=== PATIENT | male | born 1970 | race Caucasian/White ===

== ENCOUNTER 2018-04-13 08:22 | Day surgery (SDC) | payer OTHER ==
[~2018-04-13] VITALS: Ht 185.4 cm; Wt 81.5 kg
[2018-04-13] VITALS (15 sets, daily range): BP systolic 130–158; BP diastolic 65–90; PULSE 50–71; RESP 16–18; TEMP 97.9–98.2; O2SAT 96–99
[~2018-04-13 08:22] MED LIST: ASPI81 PO; CRES10TA PO; DIOV160T60 PO; METO25CR PO; NITR.4 PO; PRAS10 PO
[2018-04-13] MEDS ORDERED: IOHEXOL 350 MG/ML 100 ML BTL (for Cath Lab) OTHER ONE (08:23)
[2018-04-13] MEDS ORDERED: IOHEXOL 350 MG/ML 50 ML BTL (for Cath Lab) OTHER ONE (08:23)
[2018-04-13] MEDS ORDERED: NS 1000P @30 MLS/HR (KVO) IV SCH (09:00)
[2018-04-13] MEDS ORDERED: ECASA81 PO (09:08)
[2018-04-13] MEDS ORDERED: NITR1SUB3 SL (09:08)
[2018-04-13] MEDS ORDERED: PLAV75TA29 PO (09:08)
[2018-04-13] MEDS ORDERED: HYDR25TA5 PO (09:08)
[2018-04-13] MEDS ORDERED: ROSU20 PO (09:08)
[2018-04-13] MEDS ORDERED: DIOV160T6 PO (09:08)
[2018-04-13] MEDS ORDERED: METO1TAB42 PO (09:08)
[2018-04-13 09:15] LABS: AUTOMATED NEUTROPHIL # 4.6 TH/MM3 (1.8-7.7); BASOPHIL # 0.1 TH/MM3 (0-0.2); BASOPHIL % 0.9 % (0.0-2.0); EOSINOPHIL # 0.2 TH/MM3 (0-0.4); EOSINOPHIL % 2.5 % (0.0-4.0); HEMATOCRIT 46.3 % (39.0-51.0); HEMOGLOBIN 15.9 GM/DL (13.0-17.0); LYMPH % 28.4 % (9.0-44.0); LYMPHOCYTE # 2.1 TH/MM3 (1.0-4.8); MEAN CORPUSCULAR HEMOGLOBIN 31.5 PG (27.0-34.0); MEAN CORPUSCULAR HGB CONC 34.2 % (32.0-36.0); MEAN PLATELET VOLUME 7.3 FL (7.0-11.0); MONO % 6.4 % (0.0-8.0); MONOCYTE # 0.5 TH/MM3 (0-0.9); NEUT % 61.8 % (16.0-70.0); PLATELET COUNT 188 TH/MM3 (150-450); RED BLOOD COUNT 5.03 MIL/MM3 (4.50-5.90); RED CELL DISTRIBUTION WIDTH 13.5 % (11.6-17.2); WHITE BLOOD COUNT 7.5 TH/MM3 (4.0-11.0)
[2018-04-13 09:26] LABS: PROTHROMBIN TIME - PATIENT 10.1 SEC (9.8-11.6)
[2018-04-13 09:29] LABS: BICARBONATE 25.3 MEQ/L (21.0-32.0); CALCIUM 8.5 MG/DL (8.5-10.1); CREATININE 0.79 MG/DL (0.60-1.30)
[2018-04-13] MEDS ORDERED: VERAPAMIL HCL 5 MG/2 ML VIAL ONE (09:52)
[2018-04-13] MEDS ORDERED: HEPARIN SODIUM - IV 10,000 UNITS/10 ML VIAL ONE (09:52)
[2018-04-13] MEDS ORDERED: HEPARIN-NS/PF INJ 1,000 ML ONE (09:52)
[2018-04-13] MEDS ORDERED: NITROGLYCERIN INJ 5 ML ONE (09:52)
[2018-04-13] MEDS ORDERED: MIDAZOLAM HCL 2 MG/2 ML VIAL ONE (10:08)
[2018-04-13] MEDS ORDERED: MORPHINE SULFATE 10 MG/ML INJ ONE (11:10)
[2018-04-13] MEDS ORDERED: CLOPIDOGREL 300 MG TAB ONE (11:25)
[2018-04-13] MEDS ORDERED: SODIUM CHLOR 0.9% 1000 ML INJ 1,000 ML IV SCH (11:29)
[2018-04-13] MEDS ORDERED: MORPHINE SULFATE 4 MG/ML INJ IV PUSH PRN (11:30)
[2018-04-13] MEDS ORDERED: MISC INFORMATION XX ONE (11:30)
[2018-04-13] MEDS ORDERED: ACETAMINOPHEN 325 MG TAB PO PRN (11:30)
[2018-04-13] MEDS ORDERED: oxyCODONE/ACETAMINOPHEN 5 MG/325 MG TAB PO PRN (11:30)
[2018-04-13] MEDS ORDERED: oxyCODONE/ACETAMINOPHEN 10 MG/325 MG TAB PO PRN (11:30)
--- NOTE | 2018-04-13 11:41 | CATHPROC ---
Advebs HIS Report Study Information Study Number Admission Scheduled Start Study Start [id number] Apr 13 2018 8:22AM 04/13/2018 Apr 13 2018 9:51AM [place] [facility] Cardiac Catheterization Admit Source Facility Department Other [facility] - Fire Alarm Mechanic Physician and Clinical Staff Initial Flo Stearns Production Support Manager Stanley Figueroa,VANGIE Production Support Manager Meenu Kennedy,VANGIE Recorder Marci Hunt ,RT(R) Scrub Fabrizio Dodd RCIS(BS) Procedures Performed Procedure Location (Site) Vessel Name Coronary Angiograms LCA Left Coronary Coronary Angiograms RCA Right Coronary Drug Eluting Inflatio LAD Mid Left Coronary Drug Eluting Inflatio RCA Prox Right Coronary L Heart Cath PTCA LAD Mid Left Coronary PTCA RCA Prox Right Coronary Wire insertion Radial (right) Radial Art. Equipment Time Molybdenum Steamer Operator Description Size Mfg Part Number Used/Scraped WIRE, BALANCE MIDDLEWEIGHT [id number] 10:30 [employer] 190CM Used 190CM *[id number] TRANSDUCER, TRUWAVE [id number] 10:08 BRAN MARK * Used W/STOCKCOCK *[id number] 534-518T *0768957 -082-00 *3004698 534-521T *[id number] 10:08 [employer] PACK, CCL CUSTOM * Used *[id number] 10:08 [employer] SUPPORT, ARTERIAL ADULT 27439 *[id number] Used [id number] 10:56 MEDTRONIC BALLOON, 2.5 X 12MM EUPHORA 12MM Used *[id number] BALLOON, 2.75 X 8MM NC [id number] 11:07 MEDTRONIC 8MM Used EUPHORA *[id number] BALLOON, 3.25 X 8MM NC [id number] 10:44 MEDTRONIC 8MM Used EUPHORA *[id number] 11:02 MEDTRONIC STENT, 2.75 15MM LEONCIO 2.75 15MM Used *3152583 [id number] 10:40 MEDTRONIC STENT, 3.0 8MM LEONCIO 3.0 8MM Used *[id number] [id number] 10:49 MEDTRONIC/AVE EBU 3.5 Z2 GUIDE CATHETER FR 6 Used *[id number] [id number] 10:43 PICS Auditing 30 MYLA INDEFLATOR Used *[id number] BAND, RADIAL COMPRESSION TR [id number] 11:18 [employer] MEDICAL 24CM Used SHORT 24 *[id number] 10:08 PICS Auditing WIRE, EXCHANGE 260CM 3MMJ 260CM Used *[id number] 10:08 NAMIC MANIFOLD, 4 PORT * Used *[id number] 10:08 NYCOMED OMNIPAQUE, 350 MG, 150ML 150ML [id number] Used [id number] 10:08 [facility] BLANKET,WARM AIR CCL * Used *[id number] SHEATH, FR6 TRANSRADIAL RM*[id number] 10:08 [employer] FR 6 Used SLENDER 10CM *[id number] Equipment Model, Serial, Lot Number and Expiration Data Description Model Number Serial Number Lot Number Expiration Date STENT, 2.75 15MM LEONCIO [id number] 11-11-2019 STENT, 3.0 8MM LEONCIO [id number] 01-06-2020 History: Current Medications Medication Dosage/Unit Route Frequency Last Date/Time Taken ASA Statins (any) DIOVAN NTG SL PLAVIX History: Allergies Allergy Reaction No Known Allergies History: Risk Factors Family History of Hypertension Dyslipidemia Previous ID Previous Heart Failure Premature CAD Yes Yes Yes Yes No Prior Valve Prior PCI Prior PCIDate Prior CABG Surgery No Yes 11/24/2016 No Cerebrovascular Peripheral Artery Chronic Lung On Dialysis Diabetes Disease Disease Disease No No No No No History: Other Current Smoker Method Packs a Day Years Used Pack Years Yes Cigarettes 1 17 17 Labs Hgb (g/dl) Hct (%) WBC (l/cumm) Platelets (thousands) 11.60-17.00 35.00-51.00 4.00-11.00 150.00-450.00 15.9 46.3 7.5 188 Glucose (mg/dl) BUN (mg/dl) Creatinine (mg/dl) BUN:Creatinine (1:x) 74.00-106.00 7.00-18.00 0.50-1.30 10.00-20.00 105 13 0.7 18.6 Na (meq/l) K (meq/l) 136.00-145.00 3.50-5.10 141 4.2 INR (PTT:PT) 0.90-1.10 1 CPK-MB (ng/ML) 0.50-3.60 Not Drawn Medication Medication Total Dose (Bolus/Oral) Medication Total Dosage/Unit 1% XYLOCAINE 10 mL FENTANYL 50 mcg HEPARIN 7000 units MORPHINE 2 mg NTG (IC) 200 mcg PLAVIX 600 mg RADIAL COCKTAIL 5 mL (Bolus) VERSED 1 mg Medications (Bolus/Oral) Medication Time Given Dosage/Unit Administered By Reason VERSED 04/13/2018 10:13:34 AM 1 mg Henry, Stanley 1 mg VERSED given in lab by Stanley Figueroa RN in Left Antecubital via Peripheral IV. Ordered by Flo Schmitt FENTANYL 04/13/2018 10:14:36 AM 50 mcg Henry, Stanley 50 mcg FENTANYL given in lab by Stanley Figueroa RN in Left Antecubital via Peripheral IV. Ordered by Flo Santiago 1% XYLOCAINE 04/13/2018 10:18:22 AM 10 mL Flo Mccrary 10 mL 1% XYLOCAINE given in lab by Flo Mccrary in Right Radial via Subcutaneous. Ordered by Flo Murphy Ntg 200mcg Verapamil 2.5mg Heparin RADIAL COCKTAIL 04/13/2018 10:21:42 AM 5 mL (Bolus) Flo Mccrary 3000U 5 mL (Bolus) RADIAL COCKTAIL given in lab by Flo Mccrary in Right Radial via Radial. Using [S olution Name]. Ordered by Flo Mccrary Reason: Ntg 200mcg Verapamil 2.5mg Heparin 3200U. HEPARIN 04/13/2018 10:31:20 AM 5000 units Meenu Kennedy 5000 units HEPARIN given in lab by Meenu Kennedy RN via Peripheral IV. Ordered by Jean Mccrary HEPARIN 04/13/2018 10:59:10 AM 2000 units Stanley Figueroa 2000 units HEPARIN given in lab by Stanley Figueroa RN in Left Antecubital via Peripheral IV. Ordered by Flo Mccrary NTG (IC) 04/13/2018 11:08:36 AM 200 mcg Flo Mccrary 200 mcg NTG (IC) given in lab by Flo Mccrary via Intra-coronary. Ordered by Flo Mccrary MORPHINE 04/13/2018 11:12:46 AM 2 mg Henry, Stanley 2 mg MORPHINE given in lab by Stanley Figueroa RN in Left Antecubital via Peripheral IV. Ordered by Flo Saavedra PLAVIX 04/13/2018 11:27:00 AM 600 mg Stanley Figueroa 600 mg PLAVIX given in lab by Stanley Figueroa RN via Oral. Ordered by Flo Mccrary Medication (Drip) Medication Time Given Dosage/Unit Concentration/Unit Diluent (ml) Solution IV Solutions 04/13/2018 10:00:14 AM 50 mL (IV) NaCl .9 Patient arrived on IV Solutions in Left Antecubital via Peripheral IV. Pump/Drip Flow using NaCl .9. Initial Case Assessment Cardiovascular HR Rhythm NIBP Chest Pain 56 sr 140/83 0 Edema Present Skin color Skin None Normal Warm Dry Circulatory - Right Pulses Dorsalis Pedis Femoral Radial 2 2 2 Scale (0,1,2,3,4,d) Circulatory - Left Pulses Dorsalis Pedis Femoral Radial 2 2 Scale (0,1,2,3,4,d) Circulatory - Lower Extremities Color Lower Right Color Lower Left Normal Normal Neurological State Oriented to time-place- Alert Moves all extremities person Respiration - General Respiration Rate SpO2 (%) (B/min) 8 97 Final Case Assessment Cardiovascular HR Rhythm NIBP Chest Pain 56 sr 140/83 0 Edema Present Skin color Skin None Normal Warm Dry Circulatory - Right Pulses Dorsalis Pedis Femoral Radial 2 2 2 Scale (0,1,2,3,4,d) Circulatory - Left Pulses Dorsalis Pedis Femoral Radial 2 2 Scale (0,1,2,3,4,d) Circulatory - Lower Extremities Color Lower Right Color Lower Left Normal Normal Neurological State Oriented to time-place- Alert Moves all extremities person Respiration - General Respiration Rate SpO2 (%) (B/min) 8 97 Chronological Log Time Study Chronological Log 9:51:08 Patient arrived via Bed. 9:51:09 Patient Name, D.O.B, / Armband Verified By R.N. 9:51:09 Consent signed by the physician and the patient and verified by the Fire Alarm Mechanic staff. Vitals capture started with the following parameters, Patient=Adult, Interval=5 min, Initial Pr uaogeo=355 mmHg, 9:58:58 Deflation Rate=5 mmHg, Cuff placed on Left Arm 9:59:35 HR=61 bpm, YCWV=867/85 mmhg, SpO2=99.0 %, Resp=18 B/min, Pain=0, Melchor=10, Acosta=2 9:59:54 Pre-op and post- op instructions given; patient acknowledges understanding of instructions. 9:59:56 Verbal Stimulation=2 Physical Stimulation=2 Airway=2 Respiration=2 TOTAL=8. (0=absent, 1=li mited, 2=present) 10:00:01 Allens test performed on the right radial and ulnar artery. Positive 10:00:08 Patient has been NPO for More than 6Hrs. 10:00:08 Skin Breakdown- none per patient 10:00:10 Patient Warmer Placed on the Table. 10:00:11 Coni Prominences Protected 10:00:14 A # 20 IV was noted in the Antecubital (left). Grade = 0 10:00:14 Patient arrived on IV Solutions in Left Antecubital via Peripheral IV. Pump/Drip Flow using NaCl .9. 10:00:15 History and physical on the chart or being dictated. Assessment: Initial Case, HR=56 BPM, Rhythm=sr, DYLC=910/83 mmhg, Chest Pain=0, Edema=None, Col or=Normal, Skin = Warm, Dry Right Pulses: Darnell Ped=2, Femoral=2, Radial=2 Left Pulses: Darnell Ped=2, Femoral=2 10:00:15 Lower Right Extremities: Color=Normal Lower Left Extremities: Color=Normal Neurological: State=Alert, Ox3, [place] Respiration: Resp=8 B/min, SpO2=97 % 10:00:23 Right Radial and groin(s) prepped with 2% chlorhexidine, and draped after a 3 min. waiting time. 10:01:49 Reference ECG taken 10:03:37 Pressure channel 1 zeroed. 10:05:05 HR=61 bpm, EXNK=798/83 mmhg, SpO2=98.0 %, Resp=6 B/min, Pain=0, Melchor=10, Acosta=2 10:06:00 MD paged 10:08:00 MD responded 10:09:37 HR=56 bpm, UCAD=706/79 mmhg, SpO2=97.0 %, Resp=11 B/min, Pain=0, Melchor=10, Acosta=2 10:11:53 MD arrived. 10:13:34 1 mg VERSED given in lab by Stanley Figueroa RN in Left Antecubital via Peripheral IV. Ordered by Flo Mccrary 50 mcg FENTANYL given in lab by Stanley Figueroa RN in Left Antecubital via Peripheral IV. Ordered by Flo Mccrary 10:14:36 G. 10:14:36 HR=56 bpm, DQCW=234/80 mmhg, SpO2=99.0 %, Resp=9 B/min, Pain=0, Melchor=10, Acosta=2 Time Out. Correct patient, correct procedure, correct physician, labs, allergies, and equipment verified with cathode ray tube assembler 10:16:41 team present. Fire risk assesment completed (see hard stop sheet for coding). Time Out Conc urred by MD and individual staff in procedure. 10:17:08 Case Start 10 mL 1% XYLOCAINE given in lab by Flo Mccrary in Right Radial via Subcutaneous. Ordere d by Hermann, 10:18:22 Flo Urena 10:19:33 HR=66 bpm, HGWR=890/91 mmhg, SpO2=98.0 %, Resp=11 B/min, Pain=0, Melchor=10, Acosta=2 10:19:42 Access site was Radial Artery. A SHEATH, FR6 TRANSRADIAL SLENDER 10CM FR 6 was advanced into the Radial (right) using the Perc utaneous 10:19:49 technique. A JR 4.0 INFINITI CATHETER FR 5 was advanced over a wire. OMNIPAQUE, 350 MG, 150ML 150ML was us ed for 10:20:54 injections. 5 mL (Bolus) RADIAL COCKTAIL given in lab by Flo Mccrary in Right Radial via Radial. Us ing [Solution Name]. 10:21:42 Ordered by Flo Mccrary. Reason: Ntg 200mcg Verapamil 2.5mg Heparin 3200U. Recorded Pressure: LV, HR=69, Condition=Condition 1 10:22:43 (Left Ventricle) LV 124/7/12 Recorded Pressure: LV, Ao, HR=66, Condition=Condition 1 10:22:56 (Left Ventricle) LV 107/5/10, (Aorta) Ao 123/76/98 10:23:23 The RCA was injected and visualized at various angles. OMNIPAQUE, 350 MG, 150ML 150ML used . After removing the current catheter a JL 3.5 INFINITI CATHETER FR 5 was advanced over a WIRE, E XCHANGE 260CM 10:24:39 3MMJ 260CM. 10:24:41 HR=70 bpm, PBKP=043/72 mmhg, SpO2=94.0 %, Resp=16 B/min, Pain=0, Melchor=10, Acosta=2 10:26:40 The LCA was injected and visualized at various angles. OMNIPAQUE, 350 MG, 150ML 150ML used . 10:30:14 HR=63 bpm, GAVS=675/74 mmhg, SpO2=97.0 %, Resp=7 B/min, Pain=0, Melchor=10, Acosta=2 10:31:20 5000 units HEPARIN given in lab by Meenu Kennedy RN via Peripheral IV. Ordered by Flo Oreilly A JR 4.0 GUIDE CATHETER FR 6 was advanced over a wire. OMNIPAQUE, 350 MG, 150ML 150ML was used for 10:32:01 injections. 10:34:39 HR=58 bpm, KAEG=911/79 mmhg, SpO2=98.0 %, Resp=13 B/min, Pain=0, Melchor=10, Acosta=2 10:35:10 A WIRE, BALANCE MIDDLEWEIGHT 190CM 190CM was inserted via Radial (right). 10:35:22 Interventional wire has crossed the lesion 10:36:07 Activated Clotting Time Drawn 10:40:08 HR=56 bpm, ZTGV=681/76 mmhg, SpO2=97.0 %, Resp=7 B/min, Pain=0, Melchor=10, Acosta=2 A STENT, 3.0 8MM LEONCIO 3.0 8MM was advanced through a JR 4.0 GUIDE CATHETER FR 6 over a WIRE, BA YOEL 10:41:02 MIDDLEWEIGHT 190CM 190CM. A STENT, 3.0 8MM LEONCIO 3.0 8MM was deployed using a 30 MYLA INDEFLATOR at 14 atmospheres for 30 s econds in the 10:41:47 RCA Prox. 10:42:49 Re-inflated the stent balloon in the RCA Prox to 14 MYLA for 30 seconds. 10:43:31 Re-inflated the stent balloon in the RCA Prox to 16 MYLA for 12 seconds. 10:43:47 ACT (Normal Range 90-180) = 421 10:44:25 Delivery device removed A BALLOON, 3.25 X 8MM NC EUPHORA 8MM was inserted over WIRE, BALANCE MIDDLEWEIGHT 190CM 190CM v ia the 10:44:31 Radial (right). 10:44:37 HR=57 bpm, ZCVS=360/77 mmhg, SpO2=99.0 %, Resp=10 B/min, Pain=0, Melchor=10, Acosta=2 A BALLOON, 3.25 X 8MM NC EUPHORA 8MM over a WIRE, BALANCE MIDDLEWEIGHT 190CM 190CM in the RCA P ad 10:45:30 was inflated using a 30 MYLA INDEFLATOR at 14 myla for 14 sec. A BALLOON, 3.25 X 8MM NC EUPHORA 8MM over a WIRE, BALANCE MIDDLEWEIGHT 190CM 190CM in the RCA P ad 10:46:12 was inflated using a 30 MYLA INDEFLATOR at 16 myla for 10 sec. 10:48:27 Balloon Removed. 10:48:35 Wire removed 10:49:07 Catheter was removed 10:49:38 HR=58 bpm, JIPG=255/71 mmhg, SpO2=98.0 %, Resp=8 B/min, Pain=0, Melchor=10, Acosta=2 A EBU 3.5 Z2 GUIDE CATHETER FR 6 was advanced over a wire. OMNIPAQUE, 350 MG, 150ML 150ML was u sed for 10:49:51 injections. 10:52:46 Activated Clotting Time Drawn 10:53:54 A WIRE, BALANCE MIDDLEWEIGHT 190CM 190CM was inserted via Radial (right). 10:54:41 HR=54 bpm, BITR=775/72 mmhg, SpO2=98.0 %, Resp=7 B/min, Pain=0, Melchor=10, Acosta=2 10:55:35 Interventional wire has crossed the lesion A BALLOON, 2.5 X 12MM EUPHORA 12MM was inserted over WIRE, BALANCE MIDDLEWEIGHT 190CM 190CM via the 10:57:23 Radial (right). A BALLOON, 2.5 X 12MM EUPHORA 12MM over a WIRE, BALANCE MIDDLEWEIGHT 190CM 190CM in the LAD Mid was 10:57:35 inflated using a 30 MYLA INDEFLATOR at 8 myla for 20 sec. 2000 units HEPARIN given in lab by Stanley Figueroa, RN in Left Antecubital via Peripheral IV. Orde red by Flo Mccrary 10:59:10 G. 10:59:22 Balloon Removed. 10:59:38 HR=55 bpm, FVHI=592/79 mmhg, Resp=8 B/min, Pain=0, Melchor=10, Acosta=2 A STENT, 2.75 15MM LEONCIO 2.75 15MM was advanced through a EBU 3.5 Z2 GUIDE CATHETER FR 6 over a WIRE, 11::41 BALANCE MIDDLEWEIGHT 190CM 190CM. A STENT, 2.75 15MM LEONCIO 2.75 15MM was deployed using a 30 MYLA INDEFLATOR at 14 atmospheres for 30 seconds 11:02:41 in the LAD Mid. 11:03:24 Delivery device removed 11:04:37 HR=54 bpm, IBKQ=623/78 mmhg, SpO2=98.0 %, Resp=15 B/min, Pain=0, Melchor=10, Acosta=2 A BALLOON, 2.75 X 8MM NC EUPHORA 8MM was inserted over WIRE, BALANCE MIDDLEWEIGHT 190CM 190CM v ia the 11:05:35 Radial (right). A BALLOON, 2.75 X 8MM NC EUPHORA 8MM over a WIRE, BALANCE MIDDLEWEIGHT 190CM 190CM in the LAD M id 11:06:39 was inflated using a 30 MYLA INDEFLATOR at 12 myla for 10 sec. A BALLOON, 2.75 X 8MM NC EUPHORA 8MM over a WIRE, BALANCE MIDDLEWEIGHT 190CM 190CM in the LAD M id 11:07:14 was inflated using a 30 MYLA INDEFLATOR at 16 myla for 10 sec. A BALLOON, 2.75 X 8MM NC EUPHORA 8MM over a WIRE, BALANCE MIDDLEWEIGHT 190CM 190CM in the LAD Mid 11:07:27 was inflated using a 30 MYLA INDEFLATOR at 16 myla for 10 sec. 11:08:01 Balloon Removed. 11:08:36 200 mcg NTG (IC) given in lab by Flo Mccrary via Intra-coronary. Ordered by Flo Schmitt. 11:09:38 HR=63 bpm, JMAD=085/78 mmhg, SpO2=98.0 %, Resp=9 B/min, Pain=0, Melchor=10, Acosta=2 11:10:07 Wire removed 11:12:28 Catheter was removed 11:12:46 2 mg MORPHINE given in lab by Stanley Figueroa RN in Left Antecubital via Peripheral IV. Orde red by Flo Mccrary 11:13:01 Case End Assessment: Final Case, HR=56 BPM, Rhythm=sr, JYAL=056/83 mmhg, Chest Pain=0, Edema=None, [place] r=Normal, Skin = Warm, Dry Right Pulses: Darnell Ped=2, Femoral=2, Radial=2 Left Pulses: Darnell Ped=2, Femoral=2 11:13:12 Lower Right Extremities: Color=Normal Lower Left Extremities: Color=Normal Neurological: State=Alert, Ox3, [place] Respiration: Resp=8 B/min, SpO2=97 % 11:14:39 HR=60 bpm, FZDX=381/81 mmhg, Resp=10 B/min, Pain=0, Melchor=10, Acosta=2 11:15:36 Catheter(s) removed without difficulty Radial Compression Device Used. 12 mLs of air placed in BAND, RADIAL COMPRESSION TR SHORT 24 2 4CM. Affected 11:15:38 hand 96 % O2 saturation. 11:15:46 Sterile dressing applied to site 11:15:46 No case complications noted. 11:15:49 Cine recording checked. 11:15:50 Bedside Report will be given. 11:15:55 A Left Heart Cath was performed. 11:15:57 Implantable Device card placed in patient's chart. 11:20:21 HR=50 bpm, AOUK=726/74 mmhg, SpO2=98.0 %, Resp=11 B/min 11:27:00 600 mg PLAVIX given in lab by Stanley Figueroa, RN via Oral. Ordered by Flo Mccrary 11:27:18 Patient moved to [facility] End Study - Contrast Media Used In Study Contrast Total Opened (mL) Total Used (mL) Total Wasted (mL) Omnipaque 130 130 0 End Study - Maximum Contrast Load Max Contrast Load (mL) 582.1 End Study - Radiation Exposure Fluoro Time (minutes) 9.7 End Study - Sheaths Sheaths Pulled By Sheath Hold Time (min) Fabrizio Dodd End Study - Patient Disposition Complications Transferred To Interventional Outcome No Critical Care Bed successful
--- NOTE | 2018-04-13 15:05 | MA ---
cc: Flo Mccrary DO DATE: 04/13/2018 PROCEDURE: Left heart catheterization, coronary angiogram, moderate sedation 55 minutes, Cucumber drug-eluting stent (3 x 8) to the RCA, Cucumber drug-eluting stent (2.75 x 15) to the LAD. PREPROCEDURE DIAGNOSIS: Unstable angina ([place] anginal score of 3) on antianginal medications, history of coronary artery disease. POSTPROCEDURE DIAGNOSIS: Unstable angina, status post Genaro drug-eluting stent (3 x 8) to the RCA, Genaro drug-eluting stent (2.75 x 15) to the LAD. MEDICATIONS: Versed 1 mg, fentanyl 50 mcg, heparin 10,200 units, nitro 200 mcg, verapamil 2.5 mg, morphine 2 mg. CONTRAST USED: 130 mL SEDATION: 55 minutes. FLUOROSCOPY: 9.7 minutes. FRAILTY SCORE: 2. ESTIMATED BLOOD LOSS: 10 mL PROCEDURAL SUMMARY: Shahab Mahmood is a pleasant 47-year-old male, whom I see in the office and presented with continual chest pain with minimal activity concerning for significant coronary artery disease. Because of this, I recommended cardiac catheterization and forgoing stress test as he has a high pretest probability. Risks, benefits and alternatives were explained to him and he consented to such. He was brought to the lab and prepped in the usual sterile fashion. The right radial artery was accessed using modified Seldinger technique and placement of a 5/6 [place] Sor[place] slender sheath. This is easily aspirated and flushed. A JR4 was advanced over a J-wire to the ascending aorta and across the aortic valve for measurement of left ventricular pressure. This is pulled back across the aortic valve showing no significant gradient of aortic stenosis. JR4 was used for selective angiography of the right coronary artery system. This is exchanged out for a JL3.5, which was used for selective angiography of the left coronary artery system. Please see notes below for intervention. FINDINGS: Left main: Normal-sized vessel with adequate reflux. There is 10% disease. It bifurcates into an LAD and circumflex. LAD: Normal-sized vessel with a stent noted in the proximal to mid portion, which is patent. Distal to this there is a 90% lesion in the mid portion. It gives off 3 small diagonals with no significant disease. Left circumflex: Small to moderate-sized vessel with 30% disease at the ostial portion and diffuse 20% disease throughout. It gives off 2 small obtuse marginals with no significant disease. RCA: Normal-sized vessel with a stent noted in the proximal portion with 20% in-stent restenosis. Just proximal to the stent, there is a 90% stenosis. Mid to distally there is a 50% stenosis. Distally, it gives off a PDA with 2 posterolateral branches. The second posterolateral branch has a 60% stenosis in an overall small vessel. LVEDP 10. INTERVENTION: As the patient has 2 significant lesions, it is difficult to determine which one is causing his unstable angina and so I felt it was reasonable to consider intervening on both. A JR4 guide was engaged into the RCA. The patient was given heparin as an anticoagulant. A BMW wire was advanced in the distal portion of the RCA. An Genaro drug-eluting stent (3 x 8) was then placed over the lesion and inflated overlapping with his previous stent. This was postdilated with a noncompliant balloon (3.25 x 8), including the overlap of the stents. Final angiogram shows a well opposed stent with no perforations or dissections. The guide was changed out for an EBU 3.5 guide. BMW wire was advanced into the distal portion of the LAD. ACT was rechecked and was 231 and so the patient was given additional heparin. A compliant balloon (2.5 x 12) was used to predilate the lesion. An Cucumber drug-eluting stent (2.75 x 15) was then inflated over the lesion. This was postdilated with a noncompliant balloon (2.75 x 8). Final angiogram shows a well opposed stent with no perforations or dissections. The wire was removed. Guide was removed over a J wire. A radial band was placed over the arteriotomy site for hemostasis. The patient was recently started on Plavix and because of this, I felt that he should be reloaded on Plavix and so he was given 600 mg of Plavix. He left the cardiac cath tech cardiovascularly stable. IMPRESSION: 1. Unstable angina ([place] anginal class III) on multiple antianginals. 2. Coronary artery disease with known previous stenting x8. RECOMMENDATIONS: 1. Mr. Mahmood underwent PCI of his LAD and RCA as above. He will be watched overnight and if stable, in the morning discharged home. 2. He will continue on aspirin, Plavix, Crestor and ARB therapy. 3. I have attempted to place him on beta ankit therapy and decreased to lower doses, but he has not tolerated it due to overall fatigue and erectile dysfunction. He states that he is unwilling to take beta ankit therapy because of this. 4. If stable, in the morning discharge home. Thank you for allowing me to see Shahab Mahmood. If there are any questions, please do not hesitate to call. Flo Mccrary DO VGP/TL , 02:14 PM , 03:03 PM
[2018-04-14] VITALS (9 sets, daily range): BP systolic 132–139; BP diastolic 72–73; PULSE 50–62; RESP 18; TEMP 98–98.1; O2SAT 98
[2018-04-14 04:52] LABS: AUTOMATED NEUTROPHIL # 4.9 TH/MM3 (1.8-7.7); BASOPHIL # 0.1 TH/MM3 (0-0.2); BASOPHIL % 0.9 % (0.0-2.0); EOSINOPHIL # 0.2 TH/MM3 (0-0.4); EOSINOPHIL % 2.5 % (0.0-4.0); HEMATOCRIT 45.3 % (39.0-51.0); HEMOGLOBIN 15.3 GM/DL (13.0-17.0); LYMPH % 32.7 % (9.0-44.0); LYMPHOCYTE # 2.8 TH/MM3 (1.0-4.8); MEAN CELL VOLUME 92.6 FL (80.0-100.0); MEAN CORPUSCULAR HEMOGLOBIN 31.3 PG (27.0-34.0); MEAN CORPUSCULAR HGB CONC 33.8 % (32.0-36.0); MEAN PLATELET VOLUME 7.8 FL (7.0-11.0); MONO % 5.8 % (0.0-8.0); MONOCYTE # 0.5 TH/MM3 (0-0.9); NEUT % 58.1 % (16.0-70.0); PLATELET COUNT 204 TH/MM3 (150-450); RED BLOOD COUNT 4.89 MIL/MM3 (4.50-5.90); RED CELL DISTRIBUTION WIDTH 13.5 % (11.6-17.2); WHITE BLOOD COUNT 8.4 TH/MM3 (4.0-11.0)
[2018-04-14 05:13] LABS: BICARBONATE 23.9 MEQ/L (21.0-32.0); CALCIUM 8.3 MG/DL (8.5-10.1); CREATININE 0.7 MG/DL (0.60-1.30)
--- NOTE | 2018-04-14 07:49 | PD.CARD.PN ---
Subjective Subjective Remarks Doing well this morning No complaints Objective Medications Current Medications Medications (Trade) Dose Ordered Sig/Delio Route Start Time Stop Time Status Last Admin Sodium Chloride 1,000 ml @ 30 mls/hr Q24H IV 04/13/18 09:00 (Tylenol) 325 mg Q4H PRN PO 04/13/18 11:30 (Percocet 5-325 Mg) 1 tab Q4H PRN PO 04/13/18 11:30 (Percocet 10-325 Mg) 1 tab Q4H PRN PO 04/13/18 11:30 (Morphine Inj) 2 mg Q30M PRN IV PUSH 04/13/18 11:30 (Ecotrin Ec) 81 mg DAILY PO 04/14/18 09:00 (Plavix) 75 mg DAILY PO 04/14/18 09:00 (Diovan) 160 mg DAILY PO 04/14/18 09:00 (Lipitor) 40 mg DAILY PO 04/14/18 09:00 Vital Signs / I&O Vital Signs Date Time Temp Pulse Resp B/P (MAP) Pulse Ox O2 Delivery O2 Flow Rate FiO2 04/14/18 06:00 54 04/14/18 05:00 50 04/14/18 04:00 98.0 53 18 139/73 (95) 98 04/14/18 04:00 52 04/14/18 03:00 51 04/14/18 02:00 54 04/14/18 01:00 60 04/14/18 00:33 97 Room Air 04/14/18 00:00 62 04/13/18 23:25 97.9 58 16 136/70 (92) 98 04/13/18 23:00 51 04/13/18 22:00 60 04/13/18 21:00 54 04/13/18 20:00 52 04/13/18 19:50 98.2 57 16 131/74 (93) 97 04/13/18 19:50 97 Room Air 04/13/18 19:00 55 04/13/18 18:00 58 04/13/18 17:00 58 04/13/18 16:00 71 04/13/18 15:00 64 04/13/18 15:00 98.2 69 16 130/65 (86) 99 04/13/18 14:00 61 04/13/18 13:00 57 04/13/18 12:00 99 Room Air 04/13/18 12:00 97.9 58 16 158/88 (111) 99 04/13/18 12:00 50 04/13/18 09:08 97.9 63 18 140/90 (107) 96 I/O 04/13/18 04/13/18 04/13/18 04/14/18 04/14/18 04/14/18 07:00 15:00 23:00 07:00 15:00 23:00 Intake Total 1720 ml 240 ml Output Total 1500 ml Balance 220 ml 240 ml Intake Oral 720 ml 240 ml IV Total 1000 ml Output Urine Total 1500 ml # Voids 1 # Bowel Movements 0 Physical Exam GENERAL: NAD, AAOx3 SKIN: Warm and dry. HEAD: Atraumatic. Normocephalic. EYES: Pupils equal and round. No scleral icterus. No injection or drainage. ENT: No nasal bleeding or discharge. Mucous membranes pink and moist. NECK: Trachea midline. No JVD. CARDIOVASCULAR: Regular rate and rhythm. RESPIRATORY: No accessory muscle use. Clear to auscultation. Breath sounds equal bilaterally. GASTROINTESTINAL: Abdomen soft, non-tender, nondistended. Hepatic and splenic margins not palpable. MUSCULOSKELETAL: Extremities without clubbing, cyanosis, or edema. No obvious deformities. Right radial no hematoma NEUROLOGICAL: Awake and alert. No obvious cranial nerve deficits. Motor grossly within normal limits. Five out of 5 muscle strength in the arms and legs. Normal speech. PSYCHIATRIC: Appropriate mood and affect; insight and judgment normal. Laboratory Laboratory Tests Test 04/13/18 08:57 04/13/18 09:03 04/14/18 04:15 White Blood Count 7.5 TH/MM3 8.4 TH/MM3 Red Blood Count 5.03 MIL/MM3 4.89 MIL/MM3 Hemoglobin 15.9 GM/DL 15.3 GM/DL Hematocrit 46.3 % 45.3 % Mean Corpuscular Volume 92.0 FL 92.6 FL Mean Corpuscular Hemoglobin 31.5 PG 31.3 PG Mean Corpuscular Hemoglobin Concent 34.2 % 33.8 % Red Cell Distribution Width 13.5 % 13.5 % Platelet Count 188 TH/MM3 204 TH/MM3 Mean Platelet Volume 7.3 FL 7.8 FL Neutrophils (%) (Auto) 61.8 % 58.1 % Lymphocytes (%) (Auto) 28.4 % 32.7 % Monocytes (%) (Auto) 6.4 % 5.8 % Eosinophils (%) (Auto) 2.5 % 2.5 % Basophils (%) (Auto) 0.9 % 0.9 % Neutrophils # (Auto) 4.6 TH/MM3 4.9 TH/MM3 Lymphocytes # (Auto) 2.1 TH/MM3 2.8 TH/MM3 Monocytes # (Auto) 0.5 TH/MM3 0.5 TH/MM3 Eosinophils # (Auto) 0.2 TH/MM3 0.2 TH/MM3 Basophils # (Auto) 0.1 TH/MM3 0.1 TH/MM3 CBC Comment DIFF FINAL DIFF FINAL Differential Comment Prothrombin Time 10.1 SEC Prothromb Time International Ratio 1.0 RATIO Activated Partial Thromboplast Time 27.1 SEC Blood Urea Nitrogen 13 MG/DL 10 MG/DL Creatinine 0.79 MG/DL 0.70 MG/DL Random Glucose 105 MG/DL 124 MG/DL Calcium Level 8.5 MG/DL 8.3 MG/DL Sodium Level 141 MEQ/L 142 MEQ/L Potassium Level 4.2 MEQ/L 3.8 MEQ/L Chloride Level 110 MEQ/L 108 MEQ/L Carbon Dioxide Level 25.3 MEQ/L 23.9 MEQ/L Anion Gap 6 MEQ/L 10 MEQ/L Estimat Glomerular Filtration Rate 104 ML/MIN 120 ML/MIN Assessment and Plan Problem List: (1) CAD (coronary artery disease) ICD Codes: I25.10 - Atherosclerotic heart disease of [place] coronary artery without angina pectoris Status: Acute (2) Smoker ICD Codes: F17.200 - Nicotine dependence, unspecified, uncomplicated Status: Acute (3) Unstable angina ICD Codes: I20.0 - Unstable angina Assessment and Plan 1) CAD/[place] s/p PATRIZIA to RCA, PATRIZIA to LAD ASA/Plavix/ARB/Statin 2) No Beta Merissa due to bradycardia as well as erectile dysfunction 3) Cardiovascularly stable for discharge today Flo Mccrary DO April 14, 2018 07:49
[2018-04-14] MEDS ORDERED: CLOPIDOGREL 75 MG TAB PO SCH (09:00)
[2018-04-14] MEDS ORDERED: ATORVASTATIN 40 MG TAB PO SCH (09:00)
[2018-04-14] MEDS ORDERED: ASPIRIN EC 81 MG TABEC PO SCH (09:00)
[2018-04-14] MEDS ORDERED: VALSARTAN 160 MG TAB PO SCH (09:00)
--- NOTE | 2018-04-14 16:55 | EKG ---
Date Performed: 04/13/2018 Time Performed: 09:16:38 PTAGE: 47 years EKG: Sinus bradycardia. Normal ECG except for rate PREVIOUS TRACING : 09/02/2015 05.35 Since the previous tracing, no significant change not ed DOCTOR: Clarissa Ruvalcaba Interpretating Date/Time 04/14/2018 16:53:46
== END 2018-04-14 08:55 | disposition home or self-care (01) ==
LOC: HDOC 08:22 → HDIC 08:22 → HCPC 12:00 → HDOC 04-14 08:55
PROVIDERS: ATTEND Nuclear Medicine Nuclear Cardiology
DX: I25.110 Atherosclerotic heart disease of native coronary artery with unstable angina pectoris (principal); I10 Essential (primary) hypertension; E78.5 Hyperlipidemia, unspecified; Z72.0 Tobacco use; Z79.02 Long term (current) use of antithrombotics/antiplatelets; Z79.82 Long term (current) use of aspirin
CPT/HCPCS: 80048; 85002; 85025; 85610; 85730; 92920; 92921; 93005; 93458; 99152; 99153; C1725; C1769; C1874; C1887; C1893; J1644; J2250; J2270; J3010; J7030; Q9967